=== PATIENT | male | born 1975 | race Caucasian/White ===

== ENCOUNTER 2017-05-24 19:15 | Emergency (ER) | payer BC, OTHER ==
[2017-05-24] MEDS ORDERED: KETOROLAC 30 MG/ML 1 ML VIAL IM STA (20:04)
--- NOTE | 2017-05-24 20:12 | ED ---
General Adult HPI - General Chief complaint: Back Pain/Injury Stated complaint: Hip pain Time Seen by Provider: 05/24/17 19:54 Source: patient, family, RN notes reviewed Mode of arrival: wheelchair Limitations: no limitations - History of Present Illness Initial comments: Chief complaint history of present illness a 42-year-old male here with his . The patient reports that this morning at 4:30 AM when he awakened he had pain that started in the right paralumbar region radiating around toward the right hip area. Movement increases palpation in the area increases pain. No direct injury. He thinks he slept wrong because he slept on 2 pillows. He does have a strong past history of disc disease and low back problems. - Related Data Home Medications Medication Instructions Recorded Confirmed Baclofen [Lioresal] 10 mg PO BID PRN 05/24/17 05/24/17 HYDROcodone/APAP 10-325MG [Gobles 1 tab PO DAILY 05/24/17 05/24/17 10-325] Ibuprofen [Motrin] 800 mg PO TID PRN 05/24/17 05/24/17 Losartan Potassium 100 mg PO DAILY 05/24/17 05/24/17 Phentermine HCl [Adipex-P] 37.5 mg PO QAM 05/24/17 05/24/17 amLODIPine [Norvasc] 10 mg PO DAILY 05/24/17 05/24/17 Previous Rx's Medication Instructions Recorded methylPREDNISolone Dose Pack 4 mg PO DIRECTED #21 package 05/24/17 [Medrol Dose Pack] Allergies Allergy/AdvReac Type Severity Reaction Status Date / Time No Known Allergies Allergy Verified 05/24/17 20:22 Review of Systems ROS Statement: Those systems with pertinent positive or pertinent negative responses have been documented in the HPI. Review of systems. The patient denies any headache no visual acuity changes. No stiff neck no chest pain no shortness of breath no GI/ problems. His pain is the right paralumbar region and radiates around toward the right hip area. Movement increases pain palpation of the area increases pain. He thinks he may have slept wrong straining the area. All systems are reviewed. Patient reports that he took his usual Vicodin 103 25 this morning as well as ibuprofen 800 mg and one 20 mg Tylenol or baclofen. He reports the pain persisted. Past medical problems significant for back problems since age 16. He reports he had a disc rupture in 1999 and repaired in 2000. The patient's surgeries include left hip realignment, right hand and left thumb surgeries. Family history no cancers. Patient denies any ALLERGIES. He does smoke he was encouraged to stop he denies alcohol use. 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 ROS Other: All systems not noted in ROS Statement are negative. Past Medical History Past Medical History: Hypertension Additional Past Medical History / Comment(s): chronic back pain. History of Any Multi-Drug Resistant Organisms: None Reported Past Surgical History: Back Surgery Additional Past Surgical History / Comment(s): left hip. Past Psychological History: No Psychological Hx Reported Smoking Status: Current every day smoker Past Alcohol Use History: None Reported Past Drug Use History: None Reported General Exam - General Exam Comments Initial Comments: General: The patient is awake and alert, here because of pain to his right paralumbar region which radiates around the front toward the right hip area. Movement of this area increases pain. Vital signs temperature 98.9 pulse 80 respiratory rate 16 pulse ox 90% room air blood pressure 197/125. Patient reports he did take his blood pressure pills today this be repeated. Patient be be repeated 181/123. Patient was given Catapres 0.3 mg. Pupils are equal, round and reactive to light, extra-ocular movements are intact ; there is normal conjunctiva bilaterally. No signs of icterus. Ears, nose, mouth and throat: There are moist mucous membranes Neck: The neck is supple, there is no tenderness Cardiovascular: No complaint of palpitations or chest pain. Respiratory: No respiratory difficulty, no wheezing. Gastrointestinal: Denies abdominal pain, no difficulty urinating or bowel movements. Back: Pain right paralumbar region radiates around toward the right hip area. No rash noted. Palpation of the area does increase pain. Moving his right leg increases pain goes from the right hip to the right paralumbar region. No rashes noted early shingles discussed. t Musculoskeletal: Decreased range of motion from the right hip to the right paralumbar region. Movement of the leg increases pain. No direct injury. Patient thinks he slept wrong on several pillows. Neurological: Patient denies numbness tingling or any focal or lateralizing findings or problems. Skin: No rash noted.rmal judgment. Limitations: no limitations Course Vital Signs 05/24/17 05/24/17 05/24/17 19:25 20:15 21:30 Temperature 98.9 F Pulse Rate 80 Respiratory 16 18 Rate Blood Pressure 197/125 183/123 168/104 O2 Sat by Pulse 98 Oximetry Medical Decision Making - Medical Decision Making X-rays of lumbosacral spine were done and reviewed by radiologist his findings are vertebra have normal alignment. There is narrowing of L4-L5 disc space with spurring. There is mild spurring and the remainder of the lumbar spine. Posterior elements appear intact. There is no compression fracture. Sacroiliac joints appear normal. Impression multilevel spondylotic changes in more normal spine L4-L5. No fracture seen. As read by Dr. Vazquez X-ray of the right hip was done and reviewed by radiologist his impression is AP and frog view shows no fracture dislocation. Hip joint spaces fairly normal. Sacroiliac joint appears normal. Impression negative right hip exam. As read by Dr. Vazquez. Repeat blood pressure, after Catapres; patient's blood pressure started coming down with a systolic of 158/98. The patient will be advised to take an extra Norvasc when he gets home. A she'll be placed on a Medrol Dosepak to be taken as directed. Continuous home pain medications including his Vicodin and his ibuprofen. Advised to use ice alternating with heat and gentle stretching. Follow-up with family physician. Disposition Clinical Impression: Lumbar paraspinal muscle spasm, Hypertension Disposition: HOME SELF-CARE Condition: Fair Instructions: Acute Low Back Pain (ED) Prescriptions: methylPREDNISolone Dose Pack [Medrol Dose Pack] 4 mg PO DIRECTED #21 package Referrals: Aruna Webb MD [Primary Care Provider] - 1-2 days Time of Disposition: 21:44
[2017-05-24] MEDS ORDERED: cloNIDine HCL 0.1 MG TAB PO STA (20:15)
--- NOTE | 2017-05-24 20:45 | XR ---
EXAMINATION TYPE: XR Hip Complete RT DATE OF EXAM: 05/24/2017 COMPARISON: NONE HISTORY: Back pain TECHNIQUE: 2 views FINDINGS: AP and frog-leg views show no fracture nor dislocation. Hip joint space is fairly normal. S acroiliac joint appears normal. IMPRESSION: Negative right hip exam.
--- NOTE | 2017-05-24 20:47 | XR ---
EXAMINATION TYPE: XR lumbosacral spine min 4V DATE OF EXAM: 05/24/2017 COMPARISON: NONE HISTORY: Back pain TECHNIQUE: 5 views FINDINGS: Vertebra have normal alignment. There is narrowing at L4-5 disc space with spurring. There is mild spurring in the remainder of the lumbar spine. Posterior elements appear intact. There is no compression fracture. Sacroiliac joints appear normal. IMPRESSION: Multilevel spondylotic changes and more noticeable at L4-5. No fracture seen.
[2017-05-24 21:31] VITALS: RESP 18
[2017-05-24] MEDS ORDERED: predniSONE 20 MG TAB PO STA (21:42)
[2017-05-24] MEDS ORDERED: MORPHINE SULFATE 4MG/4ML SYRG ONE (21:57)
[2017-05-24] MEDS ORDERED: MORPHINE SULFATE 4MG/4ML SYRG IM STA (21:59)
[2017-05-24 22:19] VITALS: BP 156/99; PULSE 72; TEMP 98.2
== END 2017-05-24 22:19 | disposition home or self-care (01) ==
LOC: EC 19:15
DX: M62.830 Muscle spasm of back (principal); M25.551 Pain in right hip; I10 Essential (primary) hypertension; F17.200 Nicotine dependence, unspecified, uncomplicated; Z79.891 Long term (current) use of opiate analgesic; Z79.899 Other long term (current) drug therapy; Z98.890 Other specified postprocedural states
CPT/HCPCS: 99283; 72110; 73502; J1885; J7512; J2270

== ENCOUNTER → 2018-03-25 | Outpatient (CLI) | payer BC | END | disposition home or self-care (01) | LOC: RADMRIMAIN 19:43 | PROVIDERS: ATTEND Internal Medicine | DX: M54.5 Low back pain (principal) | CPT/HCPCS: 82565 ==